=== PATIENT | female | born 1995 | race Caucasian/White ===

== ENCOUNTER → 2016-06-27 | Outpatient (CLI) | payer OTHER ==
[~2016-06-27] MED LIST: DEPO-ESTRADIO5 MG/ML; NO MEDICATIONS; ZOFRAN PO
--- NOTE | ~2016-06-27 | CR262 ---
[facility] A Service of [facility] RADIOLOGY TEXT RESULTS PATIENT: JOYEC WHALEY LOCATION: [facility] : [birth year] UNIT #: [id number] AGE: [address]: Arabella Nick MD SEX: F ORDER DR: [id number] [place] [id number] MR#: [id number] Acc #: [id number] NAME: JOYCE WHALEY : 1995 SEX: F STUDY DATE/TIME: 06/27/2016 10:01 UNIT: SRAD ROOM: STUDY DESCRIPTION: CR Toe 2 Views Great Lt Attending Physician: Arabella Nick M.D. Referring Physician: Arabella Nick M.D. Ordering Physician: Arabella Nick M.D. Primary Care Physician: Arabella Nick M.D. MEDICAL IMAGING REPORT This report is preliminary unless electronic signature is present. EXAM Left great toe series, 06/27/2016. HISTORY 21-year-old female with left great toe pain and swelling after injury. Dropped object on foot 06/24/2016. TECHNIQUE Three-view left great toe series was obtained. The oblique image is suboptimal due to image overexposure. FINDINGS No fracture or other acute osseous abnormality is demonstrated. Soft tissue swelling is noted. No visible radiopaque soft tissue foreign body. IMPRESSION 1. No visible acute osseous abnormality involving the left great toe. 2. Soft tissue swelling. Dictated by... Marcel Orta M.D. THIS IS AN ELECTRONICALLY VERIFIED REPORT Marcel Orta M.D. at 06/27/2016 6:48 PM RGW/tmw TD: 06/27/2016 12:34 JOB #: [id number] MEDICAL IMAGING REPORT [facility] RADIOLOGY TEXT RESULTS PATIENT: JOYCE WHALEY LOCATION: [facility] : [birth year] UNIT #: [id number] AGE: [address]: Arabella Nick MD SEX: F ORDER DR: Page 1 of 1
== END | disposition home or self-care (01) ==
LOC: SRAD 09:52
DX: S99.922A Unspecified injury of left foot, initial encounter (principal); M79.89 Other specified soft tissue disorders
CPT/HCPCS: 73660